=== PATIENT | female | born 1980 | race Caucasian/White ===

== ENCOUNTER 2021-02-09 16:19 | Emergency (ER) | payer OTHER ==
[~2021-02-09 16:19] MED LIST: CELEBREX200 MG PO; CYCLOBENZAPRINE5 MG PO; PREDNISONE20 MG PO; PROAIR DIGIHAL90 MCG INH
[2021-02-09] MEDS ORDERED: CEPHALEXIN500 M1 PO (17:24)
[2021-02-09] MEDS ORDERED: BACTRIM DS TAB1 EACH PO (17:24)
== END 2021-02-09 17:40 | disposition home or self-care (01) ==
LOC: ER1 16:19
DX: S70.362A Insect bite (nonvenomous), left thigh, initial encounter (principal); S70.361A Insect bite (nonvenomous), right thigh, initial encounter; L08.9 Local infection of the skin and subcutaneous tissue, unspecified; Z90.710 Acquired absence of both cervix and uterus; F17.290 Nicotine dependence, other tobacco product, uncomplicated; W57.XXXA Bitten or stung by nonvenomous insect and other nonvenomous arthropods, initial encounter
CPT/HCPCS: 99283